=== PATIENT | male | born 1970 | race Caucasian/White ===

== ENCOUNTER 2020-09-08 20:32 | Emergency (ER) | payer SELFPAY ==
[2020-09-08 20:44] VITALS: BP 124/82; BP 132/76; PULSE 101; PULSE 88; RESP 18; TEMP 36.6; O2SAT 97; O2SAT 98; BMI 32.5
[2020-09-08 21:32] VITALS: BP 120/86; PULSE 99; RESP 16; O2SAT 97
--- NOTE | 2020-09-08 21:50 | ED_ITS ---
HPI - Alcohol General Chief Complaint: ETOH/Substance Use Stated Complaint: ETOH Time Seen by Provider: 09/08/20 21:50 Source: patient Mode of arrival: EMS Limitations: no limitations History of Present Illness HPI narrative: 50-year-old male found by the police sitting on the sidewalk, patient was sent to the hospital for suspicion of alcohol intoxication Related Data Allergies Allergy/AdvReac Type Severity Reaction Status Date / Time No Known Allergies Allergy Unverified 08/05/20 14:51 [No Known Allergies*] Review of Systems Review of Systems: all other systems are reviewed and are negative Constitutional: Reports as per HPI and Reports no additional constitutional complaints Eyes: Reports as per HPI and Reports no additional eye complaints Reports system reviewed and no additional complaints, except as documented Cardiovascular: Reports as per HPI and Reports no additional cardiovascular complaints Respiratory: Reports as per HPI and Reports no additional respiratory complaints Gastrointestinal: Reports as per HPI and Reports no additional gastrointestinal complaints Genitourinary: Reports no additional female genitourinary complaints Musculoskeletal: Reports no additional musculoskeletal complaints Skin/Breast: Reports system reviewed and no additional complaints, except as docu Psychiatric: Reports no additional psychiatric complaints Endocrine: Reports no additional endocrine complaints Hematologic/Lymphatic: Reports no additional hematologic/lymphatic complaints Allergic/Immunologic: Reports no additional allergic/immunologic complaints Reports system reviewed and no additional complaints, except as documented and Reports Abnormal speech present [facility] Social History Social History Smoking Status: Never smoker Use of substances other than those prescribed or required for medical reasons: No Advance Directives: No Advance Directives Information Provided: Yes Physical Exam Vital Signs: Vital Signs: Vital Signs Temp Pulse Resp BP Pulse Ox 09/08/20 21:32 99 16 120/86 97 09/08/20 20:44 98 F 101 H 18 124/82 97 Body Mass Index 32.5 vital signs have been reviewed as normal and appeared to be correct. Blood pressure normal. Heart rate normal. Respiration rate normal. Temperature normal. Oxygen saturation normal. Appearance: Alert. Oriented X3. No acute distress. alcohol on breath Head: Normal external exam. Normocephalic. Atraumatic. No Swift signs noted. No raccoon eyes noted Eyes: PERRLA. EOMI. Conjunctiva and sclera normal. Eyelids normal. ENT: EAC normal. TM's Normal. Pharynx normal. Uvula midline. Moist mucous membranes. No trismus noted. No drooling noted. No muffled voice noted. Neck: Normal inspection. Neck supple. FROM. No adenopathy. Thyroid Normal. No meningeal signs. No neck mass noted. CVS: Normal heart rate and rhythm. Heart sound normal. No murmurs noted. Pulses normal throughout. Respiratory: No respiratory distress. Painless inspiration. Breath sounds normal. No wheezes/rales/rhonchi noted. Chest nontender. No accessory muscle usage noted or decreased air movement noted. Abdomen: Soft and nontender. Bowel sounds normal in all 4 quadrants. No distention noted. No organomegaly noted. No visible injury noted. Back: No CVA tenderness. Full range of motion noted. Skin: Skin warm and dry. Normal skin color. Normal skin turgor. No rashes/lesions/lacerations noted. Extremities: No lower extremity edema. Extremities exhibit normal range of motion. Extremities nontender. Neuro: Oriented X 3. No motor deficit. No sensory deficit. Reflexes normal. Course Course Course Narrative: found in the street intoxicated, patient admitted to drinking alcohol last night, patient emergency department is talkative walking unsteady gait, patient is calling a friend to come and pick him up. MDM - Alcohol MDM Narrative Medical decision making narrative: Alcohol intoxicated will be discharged with his Sober adult friend. Discharge Plan Discharge Clinical Impression: Alcoholic intoxication Patient Disposition: Home, Self-Care Instructions: Alcohol Intoxication (ED)
== END 2020-09-08 22:20 | disposition home or self-care (01) ==
PROVIDERS: Emergency Provider Emergency Medicine
DX: F10.920 Alcohol use, unspecified with intoxication, uncomplicated (principal)
CPT/HCPCS: 99284

== ENCOUNTER 2023-07-23 12:02 | Emergency (ER) | payer OTHER, SELFPAY ==
[2023-07-23 12:05] VITALS: BP 159/100; PULSE 98; RESP 16; TEMP 37.4; O2SAT 97; BMI 32.5
--- NOTE | 2023-07-23 12:05 | ED.GENADULT ---
HPI - General Adult General Chief complaint: Skin/Abscess/Foreign Body Stated complaint: both legs and arms redness swelling Time Seen by Provider: 07/23/23 12:07 Source: patient Mode of arrival: ambulatory Limitations: no limitations History of Present Illness HPI narrative: Patient is a 53-year-old male presenting to the emergency department with complaint of pruritic rash to bilateral arms and legs for 5 days. States that he works outside. Reports rash is extremely pruritic. States that the rash is caused swelling to his lower extremities. Denies fevers. complaint: Rash Onset (ago): day(s) Location: upper extremity and lower extremity Severity: severe Quality: burning Relieving factors: none Exacerbating factors: none Associated symptoms: rash Treatments prior to arrival: none Related Data Previous Rx's Medication Instructions Recorded cephalexin 500 mg capsule 500 mg PO QID #28 caps 07/23/23 prednisone 20 mg tablet See Taper PO DAILY #18 tabs 07/23/23 Allergies Allergy/AdvReac Type Severity Reaction Status Date / Time No Known Allergies Allergy Unverified 08/05/20 14:51 [No Known Allergies*] Review of Systems Review of Systems: As per HPI. Yes all other systems are reviewed and are negative Constitutional: Constitutional: Reports as per HPI [facility] Social History Social History Advance Directives: No Physical Exam ED Vital Signs: Vital Signs - 24 hr 07/23/23 12:05 Temperature 99.4 F Pulse Rate 98 Respiratory Rate 16 Blood Pressure 159/100 H Pulse Oximetry 97 Oxygen Delivery Method Room Air BMI result Body Mass Index 32.5 Vital signs have been reviewed and appear to be correct. Blood pressure elevated. Heart rate normal. Respiratory rate normal. Temperature normal. Oxygen saturation normal. Const General: cooperative, healthy appearing and no acute distress Orientation/consciousness: oriented to person, oriented to place, oriented to time and patient oriented x3 Limitations: no limitations HENMT Head: Yes normocephalic and Yes atraumatic Ears: external ears normal General nose exam: Normal external nose present Face and sinus: Yes face symmetric Mouth: Normal oral and palatal mucosa present, oropharynx normal and moist mucous membranes Throat: Yes uvula midline Eyes Pupils: Equal, round and reactive pupils present Neck Neck: Yes normal visual inspection and Yes supple Resp Effort & Inspection: normal respiratory effort and able to speak in complete sentences Auscultation: clear to auscultation bilaterally Cardio Rate: regular rate Rhythm: regular rhythm Heart sounds: S1 normal heart sound present and S2 normal heart sound present GI Palpation (GI): Soft to palpation and nontender Auscultation: normoactive bowel sounds General: Yes no CVA tenderness Back/Spine/Pelvis Back: no CVA tenderness Skin General skin exam: elasticity normal and turgor normal Rashes: rashes noted (erythematous maculopapular rash to bilateral arms and legs ) Neuro General: oriented to person, oriented to place, oriented to time, patient oriented x3, moves all extremities, no focal motor deficits and CN's II-XI intact bilaterally Cranial nerves: Yes Equal, round and reactive pupils present Cognition (Neuro): normal cognition Extrem General: Yes full ROM, Yes no pedal edema and Yes no calf tenderness Right lower extremity: lower leg Details: non-pitting edema Details: 1+ Left lower extremity: lower leg Details: non-pitting edema Details: 1+ Psych Mental Status: mental status grossly normal Affect: normal affect Thought process: Normal thought process present Medical Decision Making Medical Decision Making MDM Narrative: Patient is a 53-year-old male presenting to the emergency department with complaint of pruritic rash to bilateral arms and legs for 5 days. On exam patient is awake, A+Ox3, VS WNL, afebrile, normal neurological exam without focal deficits, erythematous maculopapular rash to bilateral arms and legs, nonpitting edema to bilateral lower legs, R>L, no oral lesions. Given reported symptoms and physical exam findings, initial differential includes contact dermatitis, atopic dermatitis. Rash not consistent with tinea, zoster. Do not suspect TEN/SJS, DRESS, endocarditis, TTP/DIC, necrotizing fasciitis, TSS. Will discharge patient home on taper dose of prednisone as well as Keflex. Instructed patient to avoid extremes in temperature when showering, can use loratadine or cetirizine as needed for pruritus. Instructed patient to follow-up with primary care provider this week. Return precautions discussed. Patient verbalized understanding of and agreement with plan. Differential Diagnosis Differential Diagnoses: The differential diagnosis associated with the presentation includes As per MDM. External Record Review External record reviewed: Inpatient record, Office record and Outpatient record Prescription Management I considered prescription management with: Antibiotic and Other Discharge Plan Discharge Clinical Impression: Contact dermatitis Patient Disposition: Home, Self-Care Instructions: Contact Dermatitis (DC) Additional Instructions: You were evaluated in the emergency department today for a rash. You are being prescribed prednisone to decrease inflammation as well as an antibiotic. Please complete the full course of antibiotics as prescribed. Avoid extremes in temperature with showering and use lukewarm water. You can use cetirizine or loratadine as needed for itching. Please follow up with your primary care provider this week. Return to the emergency department if you develop worsening rash, chest pain, shortness of breath, swelling of lips/tongue/mouth, fever 100.4? F or greater, thick yellow drainage from wounds or any other concerning symptoms. Prescriptions: New prednisone 20 mg tablet See Taper PO DAILY Qty: 18 0RF Taper: Prednisone 60 mg daily for 3 Days and 0 Hour 40 mg daily for 3 Days and 0 Hour 20 mg daily for 3 Days and 0 Hour Rx Instructions: Take 60mg (3 tabs) for 3 days, then take 40mg (2 tabs) for 3 days, then take 20mg (1 tab)) for 3 days cephalexin 500 mg capsule 500 mg PO QID Qty: 28 0RF
== END 2023-07-23 12:34 | disposition home or self-care (01) ==
LOC: HO.ED 12:29
PROVIDERS: Emergency Provider Emergency Medicine
DX: L25.9 Unspecified contact dermatitis, unspecified cause (principal); R21 Rash and other nonspecific skin eruption
CPT/HCPCS: 99282; 99283